=== PATIENT | male | born 1975 ===

== ENCOUNTER 2018-01-20 00:20 | Emergency (ER) | payer SELFPAY ==
[2018-01-20 00:48] VITALS: BP 161/82; PULSE 91; RESP 20; TEMP 98.5; O2SAT 97
[2018-01-20] MEDS ORDERED: Lidocaine 2% MPF (5 ml) Inj ONE ×2 (02:06→02:08)
--- NOTE | 2018-01-20 02:47 | CT ---
EXAM: CT Head Without Intravenous Contrast CLINICAL HISTORY: 42 years old, male; Pain; Headache and other: Head injury and appears very sleepy; Additional info: Head injury, appears very sleepy TECHNIQUE: Axial computed tomography images of the head/brain without intravenous contrast. All CT scans at this facility use one or more dose reduction techniques, viz.: automated exposure control; ma/kV adjustment per patient size (including targeted exams where dose is matched to indication; i.e. head); or iterative reconstruction technique. COMPARISON: No relevant prior studies available. FINDINGS: Brain: Unremarkable. No hemorrhage. No significant white matter disease. No edema. Ventricles: Unremarkable. No ventriculomegaly. Bones/joints: Unremarkable. No acute fracture. Soft tissues: Unremarkable. Sinuses: Unremarkable as visualized. No acute sinusitis. Mastoid air cells: Unremarkable as visualized. No mastoid effusion. IMPRESSION: No evidence of an acute intracranial abnormality.
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
== END 2018-01-20 04:15 | disposition home or self-care (01) ==
LOC: C.ER 00:20
DX: S01.111A Laceration without foreign body of right eyelid and periocular area, initial encounter (principal); S00.81XA Abrasion of other part of head, initial encounter; Y04.0XXA Assault by unarmed brawl or fight, initial encounter